=== PATIENT | male | born 1945 | race African-American/Black ===

== ENCOUNTER 2024-12-21 17:11 | Emergency (ER) | payer OTHER ==
[~2024-12-21] VITALS: Ht 177.8 cm; Wt 127.0 kg
[2024-12-21] MEDS: methylPREDNISolone SOD SUCC 125 MG/2 ML VL IV ONE (17:48)
--- NOTE | 2024-12-21 17:50 | ED.PDOC ---
History of Present Illness HPI Comments 79-year-old male who comes in with chief complaint of shortness for breath. The patient states that he was diagnosed with influenza back in September but now seems to be worsening at this time. The patient states that today he got very short of breath. When the paramedics arrived on scene, the patient had an oxygen saturation of 83% on room air. The patient denies any nausea, vomiting or diarrhea. There has been no leg swelling or chest pain at this time. The patient was transported to our facility. EN route, the patient did receive a hand-held nebulizer as well as taking some at home. Chief Complaint: Shortness of Breath Time Seen by MD: 17:21 Reviewed Notes: Nurses Notes, Medical Delivery Driver Notes, Medications, Allergies (Allergies listed above) Allergies: Coded Allergies: Statins (Verified Allergy, Unknown, 12/21/24) Information Source: Patient, Emergency Med Personnel Mode of Arrival: EMS Severity: Moderate Timing: Days Duration: Since onset Prehospital treatment: Beta-Agonist Tx, Wagon Washer, IVF Location: Denies any nausea, vomiting or diarrhea Past Medical History PAST MEDICAL HISTORY: Cancer (Prostate cancer), CKF, COPD, High Lipids, HTN Surgical History: Appendectomy, Tonsillectomy Surgical History (Other): Prostate surgery, right ankle surgery Family History Family History: Family hx of DM Social History Smoker: Non-Smoker Alcohol: Occasionally Drugs: Denies Drug Use Lives In: Home Constitutional: denies: chills, diaphoresis, fatigue, fever, malaise, sweats, weakness, others EENTM: denies: blurred vision, double vision, ear bleeding, ear discharge, ear drainage, ear pain, ear ringing, eye pain, eye redness, hearing loss, mouth pain, mouth swelling, nasal discharge, nose bleeding, nose congestion, nose pain, photophobia, tearing, throat pain, throat swelling, voice changes, others Respiratory: reports: cough, shortness of breath; denies: hemoptysis, orthopnea, SOB at rest, SOB with excertion, stridor, wheezing, others Cardiovascular: denies: chest pain, dizzy spells, diaphoresis, Dyspnea on exertion, edema, irregular heart beat, left arm pain, lightheadedness, palpitations, PND, syncope, others Gastrointestinal: denies: abdomen distended, abdominal pain, blood streaked bowels, constipated, diarrhea, dysphagia, difficulty swallowing, hematemesis, melena, nausea, poor appetite, poor fluid intake, rectal bleeding, rectal pain, vomiting, others Genitourinary: denies: burning, dysuria, flank pain, frequency, hematuria, incontinence, penile discharge, penile sore, pain, testicle pain, testicle swelling, urgency, others Neurological: denies: dizziness, fainting, headache, left sided numbness, left sided weakness, numbness, paresthesia, pre-existing deficit, right sided num bness, right sided weakness, seizure, speech problems, tingling, tremors, weakness, others Musculoskeletal: denies: back pain, gout, joint pain, joint swelling, muscle pain, muscle stiffness, neck pain, others Integumetry: denies: bruises, change in color, change in hair/nails, dryness, laceration, lesions, lumps, rash, wounds, others Allergic/Immunocompromised: denies: Difficulty Healing, Frequent Infections, Hives, Itching, others Hematologic/Lymphatic: denies: anemia, blood clots, easy bleeding, easy bruising, swollen glands, others Endocrine: denies: excessive hunger, excessive sweating, excessive thirst, excessive urination, flushing, intolerance to cold, intolerance to heat, unexplained weight gain, unexplained weight loss, others Psychiatric: denies: anxiety, bipolar disorder, depression, hopeless, panic disorder, schizophrenia, sleepless, suicidal, others Physical Exam General Appearance: Moderate Distress HEENT: Normal ENT Inspection, Pharynx Normal, TMs Normal Neck: Full Range of Motion, Non-Tender, Normal, Normal Inspection Respiratory: Accessory Muscle Use, Chest Non-Tender, Decreased Breath Sounds, Respiratory Distress, Wheezing Cardiovascular: No Edema, No JVD, No Murmur, No Gallop, Tachycardia Breast Exam: Deferred Gastrointestinal: No Organomegaly, Non Tender, No Pulsatile Mass, Normal Bowel Sounds, Soft Genitalia: Deferred Pelvic: Deferred Rectal: Deferred Extremities: No calf tenderness, Normal capillary refill, Normal inspection, Normal range of motion, Non-tender, No pedal edema Musculoskeletal : Apperance: Normal Neurologic: Alert, 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 Was a procedure done?: No EKG EKG : Pulse Rate (adult): 115 [place]: Normal Cardiac Rhythm: ST Block: None ST: Nonsp Differential Dx Considerations may include: COPD exacerbation, pneumonia, CHF X-Ray, Labs, Meds, VS Vital Signs Date Time Temp Pulse Resp B/P (MAP) Pulse Ox O2 Delivery O2 Flow Rate FiO2 12/21/24 20:00 98 12/21/24 19:20 103 12 95 Nasal Cannula* 2 28 12/21/24 19:20 98.1 103 12 99/59 (72) 95 98.1 12/21/24 19:03 107 27 93 Nasal Cannula* 3 32 12/21/24 18:10 115 12/21/24 18:02 20 93 Nasal Cannula* 3 32 12/21/24 17:37 98.4 111 31 172/106 (128) 97 98.4 12/21/24 17:30 95 Nasal Cannula* 3 32 12/21/24 17:23 24 95 Nasal Cannula* 4 36 12/21/24 17:19 98.2 98 24 202/104 (136) 95 12/21/24 17:14 118 Lab Test 12/21/24 19:00 12/21/24 18:04 Range/Units Troponin I High Sensitivity 22 13 </=54 ng/L White Blood Count 7.7 4.4-10.8 10^3/uL Red Blood Count 4.88 4.5-5.90 10^6/uL Hemoglobin 14.7 13.5-17.5 g/dL Hematocrit 43.3 41.0-53.0 % Mean Corpuscular Volume 88.8 80.0-100.0 fL Mean Corpuscular Hemoglobin 30.1 28.0-32.0 pg Mean Corpuscular Hemoglobin Concent 33.9 32.0-36.0 g/dL Red Cell Distribution Width 14.2 11.8-14.3 % Platelet Count 190 140-450 10^3/uL Mean Platelet Volume 9.7 6.9-10.8 fL Neutrophils (%) (Auto) 54.1 37.0-80.0 % Lymphocytes (%) (Auto) 25.6 10.0-50.0 % Monocytes (%) (Auto) 8.5 0.0-12.0 % Eosinophils (%) (Auto) 10.7 H 0.0-7.0 % Basophils (%) (Auto) 1.1 0.0-2.0 % Neutrophils # (Auto) 4.1 1.6-8.6 10 ^3/uL Lymphocytes # (Auto) 2.0 0.4-5.4 10 ^3/uL Monocytes # (Auto) 0.7 0-1.3 10 ^3/uL Eosinophils # (Auto) 0.8 0-0.8 10 ^3/uL Basophils # (Auto) 0.1 0-0.2 10 ^3/uL Nucleated Red Blood Cells 0.1 % Sodium Level 141 136-145 mmol/L Potassium Level 3.4 L 3.5-5.1 mmol/L Chloride Level 106 98-107 mmol/L Carbon Dioxide Level 24 20-31 mmol/L Anion Gap 11 5-15 Blood Urea Nitrogen 11 9-23 mg/dL Creatinine 1.25 0.700-1.30 mg/dL Glomerular Filtration Rate Calc 59 >90 mL/min BUN/Creatinine Ratio 8.8 L 10.0-20.0 Serum Glucose 117 H 74-106 mg/dL Calcium Level 10.1 8.7-10.4 mg/dL B-Type Natriuretic Peptide 25.30 0-100 pg/mL Current Medications Medications (Trade) Dose Ordered Sig/Ann Route Start Time Stop Time Status Last Admin Methylprednisolone Sodium Succinate (Solu Medrol) 125 mg ONCE ONCE IV 12/21/24 17:45 12/21/24 17:46 DC 12/21/24 17:48 Ipratropium [place] (Atrovent Medneb) 1 mg ONCE ONCE N 12/21/24 17:45 12/21/24 17:46 DC 12/21/24 18:00 Albuterol (Ventolin Medneb) 10 mg ONCE ONCE N 12/21/24 17:45 12/21/24 17:46 DC 12/21/24 18:00 IV Hep-Lock was established The patient was given Solu-Medrol 125 mg IV push The patient was given a continuous breathing treatment of albuterol and Atrovent. The CBC is within normal limits The chemistry panel shows hypokalemia at 3.4 The troponin level is within normal limits The patient was now on 2 L nasal cannula and saturating at 95% We contacted [facility] and they are going to transfer the patient was their facility Patient was diagnosis is COPD exacerbation. The patient is authorization number for treatment in the emergency department's is [id number] We have discussed the findings with the patient and they are understanding of the management Images Reviewed?: Images reviewed and evaluated by me Time of 1ST Reevaluation: 18:09 Reevaluation 1ST: Unchanged Patient Education/Counseling: Diagnosis, Treatment, Prognosis Family Education/Counseling: No Family Present Departure 1 Departure Time of Disposition: 20:32 Impression: Primary Impression: COPD exacerbation Additional Impression: Acute respiratory failure Qualified Codes: J96.01 - Acute respiratory failure with hypoxia Disposition: 51 HOSPICE/MEDICAL FACILITY Condition: Fair Critical Care Note Critical Care Time?: Yes (35 min-critical care time only) Stability Stability form required: Yes Unstable for transfer: Telemetry monitoring (Telemetry monitoring required), ED Physician Assesment (Clinical assesment) Heart Score Heart Score: Heart Score Response (Comments) Value History N/A 0 EKG N/A 0 Age N/A 0 Risk Factors N/A 0 Troponin N/A 0 Total 0 MILTON CHENG MD Dec 21, 2024 17:50
[2024-12-21] MEDS: ALBUTEROL SULF 2.5 MG/0.5ML(0.5%) NEB SOLN HHN ONE (18:00)
[2024-12-21] MEDS: IPRATROPIUM BROM 0.5 MG/2.5ML INH SOL HHN ONE (18:00)
[2024-12-21 18:21] LABS: Basophils # (auto) 0.1 10 ^3/uL (0-0.2); Basophils % (auto) 1.1 % (0.0-2.0); Eosinophils # (auto) 0.8 10 ^3/uL (0-0.8); Eosinophils % (auto) 10.7 % (0.0-7.0); Hematocrit 43.3 % (41.0-53.0); Hemoglobin 14.7 g/dL (13.5-17.5); Lymphocytes % (auto) 25.6 % (10.0-50.0); Mean Corpuscular Hemoglobin 30.1 pg (28.0-32.0); Mean Corpuscular Hgb Conc. 33.9 g/dL (32.0-36.0); Mean Corpuscular Volume 88.8 fL (80.0-100.0); Monocytes # (auto) 0.7 10 ^3/uL (0-1.3); Monocytes % (auto) 8.5 % (0.0-12.0); Neutrophils # (auto) 4.1 10 ^3/uL (1.6-8.6); Neutrophils % (auto) 54.1 % (37.0-80.0); Nucleated Red Blood Cells % 0.1 %; Platelet Count (auto) 190 10^3/uL (140-450); Red Blood Cells 4.88 10^6/uL (4.5-5.90); Red Cell Distribution Width 14.2 % (11.8-14.3); White Blood Cell 7.7 10^3/uL (4.4-10.8)
--- NOTE | 2024-12-21 18:24 | DVH ---
INDICATION: sob TECHNIQUE: Frontal view of the chest. COMPARISON: None FINDINGS: . The heart and mediastinal contours are grossly unremarkable. There is no evidence of pleural disea se. The lungs are clear. The bony structures of the chest are intact without fracture. IMPRESSION: 1. No evidence of acute disease.
[2024-12-21 18:33] LABS: Chloride 106 mmol/L (98-107); Sodium 141 mmol/L (136-145)
[2024-12-21 18:34] LABS: Anion Gap 11 (5-15); Carbon Dioxide 24 mmol/L (20-31)
[2024-12-21 18:35] LABS: Calcium 10.1 mg/dL (8.7-10.4)
[2024-12-21 18:39] LABS: BUN/Creatinine Ratio 8.8 (10.0-20.0); Blood Urea Nitrogen 11 mg/dL (9-23)
[2024-12-21 18:48] LABS: Glucose 117 mg/dL (74-106); Potassium 3.4 mmol/L (3.5-5.1)
[2024-12-21 19:03] VITALS: PULSE 107; RESP 27; O2SAT 93
[2024-12-21 19:20] VITALS: PULSE 103; RESP 12; O2SAT 95
[2024-12-21 22:38] LABS: COVID19 ANTIGEN SOFIA FIA NEGATIVE (NEGATIVE)
[2024-12-21 22:39] LABS: Rapid Influenza A Negative (Negative); Rapid Influenza B Negative (Negative)
[2024-12-21 23:01] LABS: Urine Bacteria None Seen /hpf (None Seen)
[2024-12-21 23:11] LABS: Urine Blood TRACE /uL (Negative); Urine Clarity Clear (Clear); Urine Color Light-Yellow (Yellow); Urine Protein, UAD Negative (Negative); Urine Specific Gravity 1.008 (1.001-1.035); Urine Squamous Epithelial Cell None Seen /hpf (<5); Urine Urobilinogen Normal (Negative); Urine WBC < 1 /HPF (0-3); Urine pH 5.5 (5.0-9.0)
[2024-12-21 23:33] VITALS: BP 125/75; PULSE 92; RESP 12; TEMP 98.2; O2SAT 95
--- NOTE | 2024-12-22 09:50 | ECG ---
[facility] Test Date: 2024-12-21 Test Time: 17:14:32 Pat Name: CALIXTO LARA Department: er Room: Gender: M Public Relations Supervisor: dre : [id number] Requested By: MILTON CHENG Order Number: [id number] Reading MD: Ziyad Roman Measurements Intervals [place] Rate: 118 P: 73 [place]: 180 QRS: 72 QRSD: 106 T: -76 QT: 323 QTc: 453 Interpretive Statements Sinus tachycardia with irregular rate Nonspecific repol abnormality, diffuse leads Electronically Signed On 12-24-2024 17:54:30 PST by Ziyad Roman Please click the below link to view image of tracing.
== END 2024-12-21 23:35 | disposition short-term general hospital (02) ==
LOC: EDBD 17:11 → ER 17:11
DX: J96.01 Acute respiratory failure with hypoxia (principal); J44.1 Chronic obstructive pulmonary disease with (acute) exacerbation; E78.5 Hyperlipidemia, unspecified; I10 Essential (primary) hypertension; Z90.49 Acquired absence of other specified parts of digestive tract; Z85.46 Personal history of malignant neoplasm of prostate; Z90.89 Acquired absence of other organs; Z98.890 Other specified postprocedural states; Z88.8 Allergy status to other drugs, medicaments and biological substances; Z20.822 Contact with and (suspected) exposure to COVID-19
CPT/HCPCS: 36415; 71045; 80048; 81001; 83880; 84484; 85025; 87426; 87804; 93005; 94640; 96374; 99291; J2919